=== PATIENT | female | born 1980 | race Hispanic/Latino ===

== ENCOUNTER 2020-12-06 16:40 | Emergency (ER) | payer OTHER ==
[~2020-12-06] VITALS: Ht 165.1 cm; Wt 81.6 kg
[2020-12-06] MEDS ORDERED: 0.9%NACL 1000ML 1,000 ML IV ONE (17:44)
[2020-12-06 18:02] LABS: BASOPHILS % (AUTO) 0.6 % (0.0-5.0); EOSINOPHILS % (AUTO) 0.4 % (0.0-8.0); HEMATOCRIT 39.1 % (36-48); LYMPHOCYTES % (AUTO) 29.2 % (21.0-51.0); MEAN CORPUSCULAR HGB CONC 33.5 g/dL (32.0-36.0); MEAN CORPUSCULAR VOLUME 92.4 fL (79-99); MONOCYTES % (AUTO) 6.9 % (3.0-13.0); NEUTROPHILS % (AUTO) 62.5 % (40.0-77.0); PLATELET COUNT (AUTO) 217 K/uL (130-400); RED BLOOD CELL COUNT(AUTO) 4.23 MIL/uL (4.00-5.50)
[2020-12-06 18:15] LABS: CREATININE 0.8 mg/dL (0.5-1.5); POTASSIUM 3.2 mmol/L (3.5-5.1)
[2020-12-06 18:20] LABS: ALBUMIN 3.6 g/dL (3.5-5.0); BILIRUBIN,TOTAL 0.2 mg/dL (0.2-1.0)
[2020-12-06] MEDS ORDERED: IBUPROFEN 600 MG TABLET ONE (18:56)
[2020-12-06 19:10] LABS: ERYTHROCYTE SEDIMENTATION RATE 26 MM/HR (0-20)
[2020-12-06] MEDS ORDERED: IOHEXOL 350 MG/ML 100ML INFUS..BTL IV ONE (20:25)
[2020-12-06 21:10] VITALS: BP 115/71
[2020-12-06] MEDS ORDERED: BUDE180H IH (22:06)
[2020-12-06] MEDS ORDERED: ENOX80DI8 SQ (22:06)
[2020-12-06] MEDS ORDERED: ENOXAPARIN SODIUM 80 MG/0.8 ML SQ ONE ×2 (22:10→22:30)
[2020-12-06 22:18] VITALS: BP 118/68
== END 2020-12-06 22:20 | disposition home or self-care (01) ==
LOC: EDH 16:40
DX: U07.1 COVID-19 (principal); J12.82 Pneumonia due to coronavirus disease 2019; R79.89 Other specified abnormal findings of blood chemistry; F41.9 Anxiety disorder, unspecified; Z88.0 Allergy status to penicillin; Z79.1 Long term (current) use of non-steroidal anti-inflammatories (NSAID)
CPT/HCPCS: 36415; 71045; 71275; 80053; 82550; 83605; 84484; 85025; 85378; 85651; 86140; 93005; 96360; 96361; 96372; 99285; J1650; J7030; Q9967

== ENCOUNTER 2021-04-03 20:44 | Emergency (ER) | payer BC ==
[~2021-04-03] VITALS: Ht 165.1 cm; Wt 83.9 kg
[~2021-04-03 20:44] MED LIST: BUDE180H IH; ENOX80DI8 SQ
[2021-04-03] MEDS ORDERED: CLINDAMYCIN IVPB 900MG/50ML 50 ML IV SCH (22:00)
[2021-04-03] MEDS ORDERED: KETOROLAC 30MG VIAL (30MG/ML) IV ONE (22:00)
[2021-04-03] MEDS ORDERED: L.E.T. GEL 3ML SYG TP ONE (22:00)
[2021-04-03] MEDS ORDERED: LIDOCAINE HCL MPF 1% 5ML VIAL IM SCH (22:00)
[2021-04-03] MEDS ORDERED: IBUP-2070 PO (23:29)
[2021-04-03] MEDS ORDERED: CLIN-141 PO (23:29)
[2021-04-04] MEDS ORDERED: CLIN-141 PO (00:17)
[2021-04-04 00:35] VITALS: BP 136/92
== END 2021-04-04 00:35 | disposition home or self-care (01) ==
LOC: EDH 20:44
DX: L02.31 Cutaneous abscess of buttock (principal); Z79.01 Long term (current) use of anticoagulants; Z79.1 Long term (current) use of non-steroidal anti-inflammatories (NSAID); Z88.0 Allergy status to penicillin; Z79.51 Long term (current) use of inhaled steroids
CPT/HCPCS: 10060; 96365; 96366; 96375; 99284; J1885; J3490 ×2

== ENCOUNTER 2021-04-04 13:23 | Emergency (ER) | payer BC ==
[~2021-04-04] VITALS: Ht 165.1 cm; Wt 83.9 kg
[~2021-04-04 13:23] MED LIST changes: +CLIN-141 PO; +IBUP-2070 PO
[2021-04-04 13:25] VITALS: BP 141/92
== END 2021-04-04 14:21 | disposition home or self-care (01) ==
LOC: EDH 13:23
DX: L02.31 Cutaneous abscess of buttock (principal); Z88.0 Allergy status to penicillin; Z79.01 Long term (current) use of anticoagulants; Z79.1 Long term (current) use of non-steroidal anti-inflammatories (NSAID); Z79.51 Long term (current) use of inhaled steroids
CPT/HCPCS: 99281; 99282

== ENCOUNTER 2021-06-20 10:09 | Emergency (ER) | payer BC ==
[~2021-06-20] VITALS: Ht 165.1 cm; Wt 83.0 kg
[~2021-06-20 10:09] MED LIST changes: -IBUP-2070 PO
[2021-06-20 10:13] VITALS: BP 152/92
[2021-06-20] MEDS ORDERED: IBUPROFEN 600 MG TABLET ONE (10:39)
[2021-06-20] MEDS ORDERED: L.E.T. GEL 3ML SYG TP ONE (10:40)
[2021-06-20] MEDS ORDERED: L.E.T. GEL 3ML SYG TP SCH (11:00)
[2021-06-20] MEDS ORDERED: SULFAMETHOX-TMP DS 800/160 TAB PO SCH (11:00)
[2021-06-20] MEDS ORDERED: IBUPROFEN 600 MG TABLET PO SCH (11:00)
[2021-06-20] MEDS ORDERED: IBUP-2070 PO (11:09)
[2021-06-20] MEDS ORDERED: SULF1TAB42 PO (11:09)
== END 2021-06-20 11:21 | disposition home or self-care (01) ==
LOC: EDH 10:09
DX: L02.31 Cutaneous abscess of buttock (principal); F41.9 Anxiety disorder, unspecified; F32.A Depression, unspecified; Z88.0 Allergy status to penicillin; Z90.49 Acquired absence of other specified parts of digestive tract; Z79.01 Long term (current) use of anticoagulants; Z79.1 Long term (current) use of non-steroidal anti-inflammatories (NSAID); Z79.51 Long term (current) use of inhaled steroids
CPT/HCPCS: 10060; 10160; 36415; 82947